=== PATIENT | female | born 2000 | race Caucasian/White ===

== ENCOUNTER 2025-07-10 00:22 | Emergency (ER) | payer OTHER, SELFPAY ==
[2025-07-10 00:32] VITALS: BP 118/60
[2025-07-10 01:13] LABS: Hematocrit 41.2 % (37.0-47.0); Hemoglobin 14.1 g/dL (12.0-16.0); Mean Corp Hgb Conc. 34.2 g/dL (33.0-37.0); Mean Corpuscular Volume 84.6 fL (81.0-99.0); Nucleated Red Blood Cells % 0 %; Platelet Count 247 10^3/uL (130-400); Red Cell Dist. Width 12.4 % (11.5-14.5)
[2025-07-10 01:20] LABS: HCG, Serum Qualitative Screen Negative
[2025-07-10 01:32] LABS: ALT (SGPT) 20 U/L (0-35); AST (SGOT) 20 U/L (14-36); Albumin 4.8 g/dl (3.5-5.0); Alkaline Phosphatase 35 U/L (38-126); Blood Urea Nitrogen 13 mg/dl (7-17); Calcium 9.9 mg/dl (8.4-10.2); Carbon Dioxide 24 mmol/L (22-30); Chloride 106 mmol/L (98-107); Glucose 98 mg/dl (70-99); Potassium 4.1 mmol/L (3.5-5.1); Sodium 137 mmol/L (135-145); Total Protein 7.9 g/dl (6.3-8.2); eGFR > 60.00
[2025-07-10 03:42] VITALS: BP 129/83
[2025-07-10 03:44] VITALS: BP 129/83; BMI 20.4
[2025-07-10 04:00] VITALS: BP 118/66
--- NOTE | 2025-07-10 04:58 | ED.GENMED ---
History of Present Illness
General
Chief Complaint: Fainting/Passed Out
Source: patient and family
Exam Limitations: none
Time Seen by Provider: 07/10/25 03:38
Nursing documentation reviewed up to this point in time: agreed with
History of Present Illness
History of Present Illness:
24-year-old female presenting to the emergency department after syncopal episode at home. Claimed to have some achiness to the left chest prior. Mom was concerned of some shaking movement when going to the ground after passing out. She has had
some mild left hip pain but able to walk well since. Has passed out in the past. Sometimes gets chest pain with stress and anxiety.
Review of Systems
Review of Systems
Allergies reviewed?: Yes
All Other Systems: ROS reviewed and negative except as documented in HPI and ROS
Phy Exam
Physical Exam
Physical Exam:
GENERAL: Alert , in no apparent distress
EYE: pupils equal and reactive
NECK: Supple, no significant adenopathy.
ENT: o/p clr, mmm.
CARDIAC: Regular rate and rhythm .
LUNGS: Clear breath sounds bilaterally, no acute respiratory distress, no wheezes/rales/rhonchi
ABDOMEN: Soft, without focal tenderness, no r/g, no cvat
NEUROLOGICAL: Alert and oriented, no focal neuro deficits
SKIN: Warm and dry, skin intact.
MUSCULOSKELETAL: No edema, well perfused.
PSYCH: Normal and appropriate interaction.
Course
Orders/Labs/Results
Orders:
Orders
07/10/25 00:36
Electrocardiogram (*1) Urgent
Reason for Study: Chest Pain
07/10/25 00:37
EKG- Treatment ONCE
Test Result ONCE
07/10/25 00:44
Complete Blood Count/With Diff Urgent
Comprehensive Metabolic Panel Urgent
HCG, Serum Qualitative Screen Urgent
Abnormal Lab Results
07/10/25
00:44
Absolute Monos (auto) 0.7 H 10^3/uL
(0.1-0.6)
Alkaline Phosphatase 35 L U/L
(38-126)
07/10/25 00:44
07/10/25 00:44
Vital Signs
Initial and Last Documented VS:
Initial Vital Signs
Temp Pulse Resp BP Pulse Ox
97.8 F 62 16 118/60 100
07/10/25 00:32 07/10/25 00:32 07/10/25 00:32 07/10/25 00:32 07/10/25 00:32
Last Documented Vital Signs
Temp Pulse Resp BP Pulse Ox
97.8 F 63 16 118/66 100
07/10/25 00:32 07/10/25 04:15 07/10/25 04:15 07/10/25 04:00 07/10/25 04:15
MDM/Problems Addressed
MDM/Problems Addressed:
24-year-old female presenting to the emergency department today with concerns of syncopal episode at home after feeling hot and sweaty while in bed got up to go to her parents room felt a vague left-sided discomfort. After passing out had a episode
of jerking movement and immediately woke up after a moment. No ongoing confusion. No history of seizures. Vital signs normal on arrival labs unremarkable EKG normal without signs of ischemia or arrhythmia hCG negative. Patient well-appearing
here no distress normal heart and lung. Jerking movements do not sound consistent with seizure-like he was offered to get with a D-dimer considering she is on an estrogen product however PE likelihood is low during normal vital signs normal EKG.
No other additional risk factors for blood clot. No leg swelling. Patient requested to go this point would not like to get further testing with CAD reasonable, considering she is very low risk. She was given strict return precautions for any
recurrence of symptoms.
*Pulse Oximetry
SaO2: 100
Oxygen Mode of Delivery: Room air
Patient hypoxic: no (100)
*Critical Care Note
Total Time (30-74mins, 75-104mins- exclusive of procedures): Not Applicable
ED Attending Note
-
Portions of this chart may have been created with voice recognition software.� Occasional wrong word or��sound alike� substitutions may have occurred due to the inherent limitations of voice recognition software.
Discharge Plan
Departure
Patient Disposition: Home (Routine Discharge)
Date of Disposition: 07/10/25
Time of Disposition: 05:00
Patient with high blood pressure during this ER visit?: No
Condition: Good
Covid-19: Not Applicable
Discharge Problem:
Syncope
Instructions: Syncope (Fainting) (DC)
Activity Restrictions/Additional Instructions:
You came to the emergency department today after syncopal episode. Please follow closely with your primary care doctor. Return immediately for any worsening, new or concerning symptoms.
Interventions
Interventions:
*Risk Screen - Suicide Last Done: 07/10/25 00:32
*General Assessment Last Done: 07/10/25 03:44
*Neglect/Abuse Screening Last Done: 07/10/25 00:32
*ED- Fall Risk Assessment Last Done: 07/10/25 03:44
*ED COVID-19 Vaccine History Last Done: 07/10/25 03:44
ED- Cardiac Assessment Last Done: 07/10/25 03:44
ED- Neurological Assessment Last Done: 07/10/25 03:44
Discharge Date and Time
Print Language: KOSOVAN
[2025-07-10 05:11] VITALS: BP 116/68
== END 2025-07-10 05:12 | disposition home or self-care (01) ==
LOC: EMR 00:22
PROVIDERS: Emergency Medicine; EMERGENCY PHYSICIAN Emergency Medicine; FAMILY PHYSICIAN Family Medicine
DX: R55 Syncope and collapse (principal)
CPT/HCPCS: 99284; 80053; 84703; 85025; 93005